=== PATIENT | female | born 1945 | race Caucasian/White ===

== ENCOUNTER 2016-07-30 17:07 | Emergency (ER) | payer SELFPAY ==
[2016-07-30 17:20] VITALS: BP 128/74
--- NOTE | 2016-07-30 23:07 | EDM.PDOC ---
ED HPI GENERAL MEDICAL PROBLEM - General Chief Complaint: Eye Problems Stated Complaint: eye pain Time Seen by Provider: 07/30/16 17:10 Source of Information: Reports: Patient History Limitations: Reports: No Limitations - History of Present Illness INITIAL COMMENTS - FREE TEXT/NARRATIVE: Pt was cleaning up the yard and got some spinous seed in the right eye. Pt claims it happened just before she cam into emergency room. cannot open her eyes and has pain and discomfort in the right eye. Tearing form right eye. No blurry vision. Light has been bothering. No halo around the lights. No headache , nausea or vomiting.No other complaints. Onset: Today Location: Reports: Other (right eye) Quality: Reports: Ache Severity: Moderate Improves with: Reports: None Worsens with: Reports: None Associated Symptoms: Denies: Confusion, Chest Pain, Fever/Chills, Headaches, Nausea/Vomiting Treatments DIRECTOR VIDEO: Reports: Other (see below) Other Treatments DIRECTOR VIDEO: Rinsed out in shower then with contact solution - Related Data Allergies Allergy/AdvReac Type Severity Reaction Status Date / Time sulfa drugs Allergy Rash Uncoded 04/20/16 13:02 Home Meds: Home Meds DULoxetine HCl [Cymbalta] 60 mg PO DAILY 08/11/15 [History] Ibuprofen 800 mg PO DAILY 08/11/15 [History] Rivaroxaban [Xarelto] 15 mg PO DAILY 08/11/15 [History] Rosuvastatin [Crestor] 20 mg PO DAILY 08/11/15 [History] Valsartan [Diovan] 320 mg PO DAILY 08/11/15 [History] Past Medical History HEENT History: Reports: Impaired Vision Other HEENT History: Wears glasses Cardiovascular History: Reports: High Cholesterol, Hypertension Respiratory History: Reports: PE Gastrointestinal History: Reports: Cholelithiasis, Chronic Diarrhea Genitourinary History: Reports: Urinary Incontinence Other Genitourinary History: Has gotten worse over the last two months 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 Immunologic History: Reports: Other (See Below) Other Immunologic History: autoimmune osteoarthritis - Infectious Disease History Infectious Disease History: Reports: Measles - Past Surgical History Female Surgical History: Reports: Hysterectomy, Salpingo-Oophorectomy, Other (See Below) Musculoskeletal Surgical History: Reports: Shoulder Replacement, Other (See Below) Social & Family History - Family History Cardiac: Reports: Afib Respiratory: Reports: PE Neurological: Reports: Alzheimers Disease Endocrine/Metabolic: Reports: Diabetes, Type I - Tobacco Use Smoking Status *Q: Current Some Day Smoker Years of Tobacco use: 50 Packs/Tins Daily: 5 - Caffeine Use Caffeine Use: Reports: Coffee - Recreational Drug Use Recreational Drug Use: No ED ROS GENERAL - Review of Systems Review Of Systems: See Below Constitutional: Denies: Fever, Chills HEENT: Reports: Eye Pain. Denies: Eye Discharge, Hearing Loss, Rhinitis, Sinus Problem Respiratory: Denies: Cough, Sputum Cardiovascular: Denies: Chest Pain, Lightheadedness GI/Abdominal: Denies: Nausea, Vomiting Skin: Denies: Pruritis, Rash Neurological: Denies: Headache ED EXAM GENERAL W FULL EYE - Physical Exam Exam: See Below Exam Limited By: No Limitations General Appearance: Alert, WD/WN, Mild Distress Eye Exam: Right Eye: Corneal Abrasion (there is a 2mm corneal abrasion over the upper outer quadrant of the cornea on fluroscein exam), Bilateral Eye: EOMI Eyelids: Right: Normal Appearance (blepharospasm) Conjunctiva & Sclera: Right: Injected Cornea Exam: Right: Corneal Abrasion (2mm in the outer upper quadrant) Pupils: Normal Accommodation Pupillary Size: Bilateral: 2 mm Pupillary Reaction: Bilateral: Brisk Anterior Chamber: Bilateral: Normal Appearance Ears: Normal External Exam, Normal Canal, Hearing Grossly Normal, Normal TMs Nose: Normal Inspection, Normal Mucosa, No Blood Throat/Mouth: Normal Inspection, Normal Lips, Normal Teeth, Normal Gums, Normal Oropharynx, Normal Voice, No Airway Compromise Head: Atraumatic, Normocephalic Neck: Normal Inspection, Supple, Non-Tender, Full Range of Motion Course - Vital Signs Text/Narrative:: Patient has developed traumatic corneal abrasion of the right eye. Tetracaine resolved the pain and discomfort. There is no corneal edema and vision is normal. I have started patient on cipro eye drops every 2 hrs for next 24 hrs. Avoid rubbing the eye. Avoid direct sunlight, advised to wear dark glasses.Advised to return to emergency room tomorrow for recheck.If pain worsens or if has vision changes , blurry vision, needs to come in sooner. Last Recorded V/S: Last Vital Signs Temp 98.6 F 07/30/16 17:14 Pulse 84 07/30/16 17:14 Resp 20 07/30/16 17:14 BP 128/74 07/30/16 17:14 Pulse Ox 92 L 07/30/16 17:14 Departure - Departure Time of Disposition: 17:30 Disposition: Home, Self-Care 01 Condition: good Clinical Impression: Corneal abrasion Qualifiers: Encounter type: initial encounter Laterality: right Qualified Code(s): S05.01XA - Injury of conjunctiva and corneal abrasion without foreign body, right eye, initial encounter - Discharge Information Instructions: Eye Foreign Body, [id number] Referrals: PCP,Unknown [Primary Care Provider] - Forms: ED Department Discharge - Problem List & Annotations (1) Corneal abrasion SNOMED Code(s): 68218086 Code(s): S05.00XA - INJ CONJUNCTIVA AND CORNEAL ABRASION W/O FB, UNSP EYE, INIT Status: Acute Current Visit: Yes Qualifiers: Encounter type: initial encounter Laterality: right Qualified Code(s): S05.01XA - Injury of conjunctiva and corneal abrasion without foreign body, right eye, initial encounter - Problem List Review Problem List Initiated/Reviewed/Updated: Yes - Assessment/Plan Assessment:: right corneal traumatic abrasion Plan: Patient has developed traumatic corneal abrasion of the right eye. Tetracaine resolved the pain and discomfort. There is no corneal edema and vision is normal. I have started patient on cipro eye drops every 2 hrs for next 24 hrs. Avoid rubbing the eye. Avoid direct sunlight, advised to wear dark glasses.Advised to return to emergency room tomorrow for recheck.If pain worsens or if has vision changes , blurry vision, needs to come in sooner.
== END 2016-07-30 17:30 | disposition home or self-care (01) ==
LOC: LB.ED 17:07
DX: S05.01XA Injury of conjunctiva and corneal abrasion without foreign body, right eye, initial encounter (principal); E78.00 Pure hypercholesterolemia, unspecified; I10 Essential (primary) hypertension; F17.210 Nicotine dependence, cigarettes, uncomplicated; E11.9 Type 2 diabetes mellitus without complications; Z90.710 Acquired absence of both cervix and uterus; Z88.2 Allergy status to sulfonamides; Z79.899 Other long term (current) drug therapy; X58.XXXA Exposure to other specified factors, initial encounter
CPT/HCPCS: 99283

== ENCOUNTER 2016-07-31 19:16 | Emergency (ER) | payer SELFPAY | END 2016-07-31 19:40 | disposition home or self-care (01) | LOC: LB.ED 19:16 | DX: S05.01XA Injury of conjunctiva and corneal abrasion without foreign body, right eye, initial encounter (principal); E78.00 Pure hypercholesterolemia, unspecified; I10 Essential (primary) hypertension; M19.90 Unspecified osteoarthritis, unspecified site; E11.9 Type 2 diabetes mellitus without complications; F17.210 Nicotine dependence, cigarettes, uncomplicated; Z90.710 Acquired absence of both cervix and uterus; Z88.2 Allergy status to sulfonamides; Z79.899 Other long term (current) drug therapy; Y93.H2 Activity, gardening and landscaping; Y92.096 Garden or yard of other non-institutional residence as the place of occurrence of the external cause | CPT/HCPCS: 99282; 99283 ==

== ENCOUNTER 2019-12-04 10:57 | Emergency (ER) | payer MEDICARE ==
[2019-12-04] MEDS: Acetaminophen 325 MG Tab PO ONE (11:56)
[2019-12-04 12:04] VITALS: BP 140/105; PULSE 111
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
[2019-12-04] MEDS: Acetaminophen 325 MG Tab ONE (13:15)
[2019-12-04] MEDS: ALPRAZolam 0.25 MG Tab PO ONE (13:19)
--- NOTE | 2019-12-04 13:27 | CR ---
DATE OF SERVICE: 12/04/2019 CLINICAL DATA: Rib pain AP chest: No priors. The patient has taken a very poor inspiration and is in an apical lordotic position. The heart size is within normal limits. The aorta is calcified and ectatic. There is persistent mild eventration right hemidiaphragm. The lungs appear clear. No pneumothorax. No pleural effusions. The patient is status post left shoulder arthroplasty. No displaced fractures. No evidence of acute intrathoracic disease. [facility]
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
[2019-12-04] MEDS: ALPRAZolam 0.25 MG Tab ONE (13:38)
== END 2019-12-04 13:58 | disposition home or self-care (01) ==
LOC: LB.ED 10:57
DX: S40.021A Contusion of right upper arm, initial encounter (principal); S60.512A Abrasion of left hand, initial encounter; I48.91 Unspecified atrial fibrillation; F17.210 Nicotine dependence, cigarettes, uncomplicated; M19.90 Unspecified osteoarthritis, unspecified site; E10.9 Type 1 diabetes mellitus without complications; Z88.2 Allergy status to sulfonamides; Z79.899 Other long term (current) drug therapy; Y04.0XXA Assault by unarmed brawl or fight, initial encounter
CPT/HCPCS: 70450; 71046; 72125; 93005; 99283; 99285-25; A9270-GY

== ENCOUNTER 2019-12-14 18:58 | Observation (INO) | payer MEDICARE ==
[2019-12-15] MEDS: Cephalexin 500 MG Cap PO SCH ×3 (06:14→18:54)
[2019-12-15] MEDS: metFORMIN 500 MG Tab.ER PO SCH ×3 (09:00→20:40)
[2019-12-15] MEDS: Acetaminophen 500 MG Tab PO SCH (09:00)
[2019-12-15] MEDS ORDERED: Lisinopril 5 MG Tab ONE (09:34)
[2019-12-15] MEDS ORDERED: metFORMIN 500 MG Tab.ER ONE (09:34)
[2019-12-15] MEDS ORDERED: Metoprolol Succinate 100 MG Tab.ER ONE ×2 (09:35→20:32)
[2019-12-15] MEDS: Lisinopril 5 MG Tab PO SCH (09:36)
[2019-12-15] MEDS: Metoprolol Succinate 100 MG Tab.ER PO SCH ×2 (09:36→20:42)
[2019-12-15] MEDS ORDERED: Acetaminophen 500 MG Tab ONE (09:50)
[2019-12-15] MEDS ORDERED: DULoxetine 60 MG Cap ONE (17:16)
[2019-12-15] MEDS ORDERED: ALPRAZolam 0.25 MG Tab ONE (17:18)
[2019-12-15] MEDS: DULoxetine 30 MG Cap PO SCH (17:31)
[2019-12-15] MEDS ORDERED: ALPRAZolam 0.25 MG Tab PO ONE (17:31)
[2019-12-15] MEDS ORDERED: Rivaroxaban 15 MG Tab PO SCH (18:00)
[2019-12-15] MEDS: Spironolactone 25 MG Tab PO SCH (18:40)
[2019-12-15] MEDS: Oxybutynin 5 MG Tab PO SCH ×3 (18:40→20:40)
[2019-12-15] MEDS ORDERED: Cephalexin 500 MG Cap ONE (18:46)
[2019-12-15] MEDS ORDERED: Rivaroxaban 10 MG Tab ONE (18:48)
[2019-12-15] MEDS ORDERED: Metoprolol Succinate 50 MG Tab.ER ONE (20:31)
[2019-12-16] MEDS: DULoxetine 30 MG Cap PO SCH ×2 (00:50→16:57)
[2019-12-16] MEDS: Cephalexin 500 MG Cap PO SCH ×3 (00:51→16:39)
[2019-12-16] MEDS ORDERED: Cephalexin 500 MG Cap ONE ×2 (07:10)
[2019-12-16] MEDS: Acetaminophen 500 MG Tab PO SCH (08:26)
[2019-12-16] MEDS: Lisinopril 5 MG Tab PO SCH (08:27)
[2019-12-16] MEDS: Oxybutynin 5 MG Tab PO SCH (08:27)
[2019-12-16] MEDS: Metoprolol Succinate 100 MG Tab.ER PO SCH (08:28)
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
[2019-12-16] MEDS ORDERED: ALPRAZolam 0.25 MG Tab ONE (16:00)
[2019-12-16] MEDS: DULoxetine 60 MG Cap*PT OWN MED PO SCH ×2 (16:34→21:00)
[2019-12-16] MEDS: METOPROLOL SUCCINATE 100 MG PO SCH ×2 (16:34→21:00)
[2019-12-16] MEDS: OXYBUTYNIN 5 MG PO SCH ×3 (16:34→21:00)
[2019-12-16] MEDS: LISINOPRIL 5 MG PO SCH (16:37)
[2019-12-16] MEDS: metFORMIN 500 MG Tab.ER PO SCH ×2 (16:42→16:43)
[2019-12-16] MEDS: Spironolactone 25 MG Tab PO SCH (16:42)
[2019-12-16] MEDS: ALPRAZolam 0.25 MG Tab PO PRN (16:45)
[2019-12-16] MEDS ORDERED: Rivaroxaban 10 MG Tab PO SCH (18:00)
[2019-12-17] MEDS: metFORMIN 500 MG Tab.ER PO SCH ×2 (04:49→07:42)
[2019-12-17] MEDS: OXYBUTYNIN 5 MG PO SCH (07:35)
[2019-12-17] MEDS: LISINOPRIL 5 MG PO SCH (07:36)
[2019-12-17] MEDS: METOPROLOL SUCCINATE 100 MG PO SCH (07:36)
[2019-12-17] MEDS: Spironolactone 25 MG Tab ONE ×2 (07:37→07:44)
[2019-12-17] MEDS: DULoxetine 60 MG Cap*PT OWN MED PO SCH (07:37)
[2019-12-17] MEDS: Acetaminophen 500 MG Tab PO SCH (07:43)
[2019-12-17] MEDS: Spironolactone 25 MG Tab PO SCH (07:44)
[2019-12-17] MEDS ORDERED: Nystatin Crm 30 GM Tube TOP PRN (09:05)
[2019-12-17] MEDS ORDERED: Nystatin Topical Powder 15 GM Bottle ONE (09:11)
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
[2019-12-17] MEDS: ALPRAZolam 0.25 MG Tab PO PRN (10:59)
[2019-12-17 13:08] VITALS: BP 107/77; PULSE 115
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
[2019-12-18] MEDS ORDERED: buPROPion 150 MG Tab.ER PO SCH (08:00)
[2019-12-18] MEDS ORDERED: Lisinopril 5 MG Tab PO SCH (08:00)
[2019-12-18] MEDS ORDERED: Lisinopril 20 MG Tab PO SCH (08:00)
== END 2019-12-17 12:30 | disposition home or self-care (01) ==
LOC: LB.ED 18:58 → UNDOADMOB 21:00 → LB.MS 21:00
PROVIDERS: ADMIT Surgery; ATTEND Surgery
DX: F32.9 Major depressive disorder, single episode, unspecified (principal); F41.9 Anxiety disorder, unspecified; I77.1 Stricture of artery; N39.0 Urinary tract infection, site not specified; I48.20 Chronic atrial fibrillation, unspecified; Z20.828 Contact with and (suspected) exposure to other viral communicable diseases; E78.00 Pure hypercholesterolemia, unspecified; R19.7 Diarrhea, unspecified; F17.200 Nicotine dependence, unspecified, uncomplicated; E11.9 Type 2 diabetes mellitus without complications; Z88.2 Allergy status to sulfonamides; Z79.899 Other long term (current) drug therapy; Z79.84 Long term (current) use of oral hypoglycemic drugs
CPT/HCPCS: 36415; 80053; 82962; 85025; A9270-GY; G0378; U0002

== ENCOUNTER → 2020-03-18 | Emergency (ER) | payer MEDICARE ==
[~2020-03-18] MED LIST: 50% Dextrose in Water 50 ML Syringe ONE; Albuterol 0.083% 2.5 MG/3 ML Neb Soln ONE; Albuterol/Ipratropium 3.0-0.5 MG/3 ML Neb Soln ONE; Atropine 0.1 MG/ML 10 ML Syringe ONE; EPINEPHrine 1:10,000 1 MG/10 ML Syringe ONE; Insulin Regular, Human 100 Units/ML 3 ML Vial ONE; Ketamine 200 MG/20 ML MDV ONE; Norepinephrine 4 MG/4 ML SDV ONE; Sodium Bicarbonate 8.4% 50 MEQ/50 ML Syringe ONE
== END ==
LOC: LB.ED 17:20
DX: Z53.21 Procedure and treatment not carried out due to patient leaving prior to being seen by health care provider (principal)
CPT/HCPCS: J0610

== ENCOUNTER 2020-03-24 11:05 | Observation (INO) | payer MEDICARE ==
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
--- NOTE | 2020-03-24 13:14 | CR ---
DATE OF SERVICE: 03/24/20 CLINICAL DATA: chest pain AP CHEST: Comparison is made to a prior exam dated 12/04/19. The heart size is normal. The aorta is calcified and ectatic. The lungs are clear. No pneumothorax. No pleural effusions. The patient is status post left shoulder arthroplasty. No evidence of acute intrathoracic disease. [id number] [facility]
[2020-03-24] MEDS ORDERED: Acetaminophen 325 MG Tab PO PRN (13:28)
[2020-03-24] MEDS ORDERED: ALPRAZOLAM 0.5 MG PO PRN (13:28)
[2020-03-24] MEDS ORDERED: OXYBUTYNIN CHLORIDE 10 MG PO SCH (14:00)
[2020-03-24] MEDS ORDERED: ALPRAZolam 0.25 MG Tab ONE (14:56)
[2020-03-24] MEDS ORDERED: Oxybutynin 5 MG Tab ONE (14:57)
[2020-03-24] MEDS: Sodium Chloride 0.9% 1,000 ML IV SCH (15:00)
[2020-03-24] MEDS ORDERED: ALPRAZolam 0.25 MG Tab PO PRN (15:44)
[2020-03-24] MEDS ORDERED: metFORMIN 500 MG Tab.ER PO SCH (18:00)
--- NOTE | 2020-03-24 18:35 | PCM.PN ---
- General Info Date of Service: 03/24/20 Subjective Update: Patient seen at bedside. Denies any current chest pains at this time and notes some bouts of anxiety for her grandson and expectant twins. There have been current family concerns the past few weeks/months. Currently her son and [id number] with her grandson Hemant have moved out. She is living alone at home and there have been community members helping her. She notes she does not have a car as it is with Mell([id number]) who has the keys. She does note she has fallen a few times and has had difficulty getting up. She has felt weak at times as well. Her memory appears intact but there are concerns of memory loss by her [id number]. The ambulance has been called a few times due to her falls. Patient acknowledges falls as she states she feels weak sometimes. Patient notes her debit card is with her [id number] and they have withdrawn her social security check and she has no money at this time. Patient is in fair spirits and coherent and appears well. She notes a meeting tomorrow at 930am with DONA ANA with social service assistant and home health to discuss plan of care for her and atrial mass. Appetite is good. Day month year is incorrect today. Place and person intact. Functional Status: Reports: Tolerating Diet - Review of Systems General: Reports: Weakness HEENT: Reports: No Symptoms Pulmonary: Reports: No Symptoms Cardiovascular: Reports: No Symptoms Gastrointestinal: Reports: No Symptoms Neurological: Reports: Confusion, Weakness - Patient Data Vitals - Most Recent: Last Vital Signs Temp 36.3 C 03/24/20 17:43 Pulse 94 03/24/20 17:43 Resp 12 03/24/20 17:43 BP 104/70 03/24/20 17:43 Pulse Ox 96 03/24/20 17:43 Weight - Most Recent: 74.571 kg I&O - Last 24 Hours: Intake & Output 03/24/20 03/24/20 03/24/20 06:59 14:59 22:59 Intake Total 225 Balance 225 Lab Results Last 24 Hours: Laboratory Results - last 24 hr 03/24/20 03/24/20 03/24/20 Range/Units 11:12 11:12 11:12 WBC 6.6 D (4.0-11.0) K/uL RBC 4.48 (3.80-5.80) M/uL Hgb 14.0 (11.5-16.5) g/dL Hct 39.8 (37.0-47.0) % MCV 89 (76-96) fL MCH 31.3 (27.0-32.0) pg MCHC 35.2 H (31.0-35.0) g/dL RDW 13.8 (11.0-16.0) % Plt Count 221 D (150-500) K/uL MPV 12.5 H (6.0-10.0) fL Neut % (Auto) 66.1 (45.0-70.0) % Lymph % (Auto) 24.0 (20.0-40.0) % [place] % (Auto) 7.3 (3.0-10.0) % Eos % (Auto) 2.1 (1.0-5.0) % Baso % (Auto) 0.5 (0.0-0.5) % Neut # (Auto) 4.38 (2.00-7.50) K/uL Lymph # (Auto) 1.59 (1.50-4.00) K/uL [place] # (Auto) 0.48 (0.20-0.80) K/uL Eos # (Auto) 0.14 (0.04-0.40) K/uL Baso # (Auto) 0.03 (0.02-0.10) K/uL Sodium 131 L (136-145) mmol/L Potassium 5.6 H (3.5-5.1) mmol/L Chloride 99 (98-107) mmol/L Carbon Dioxide 19.9 L D (21.0-32.0) mmol/L Anion Gap 17.7 H (5.0-15.0) mmol/L BUN 53 H* D (8-26) mg/dL Creatinine 1.99 H (0.55-1.02) mg/dL Est Cr Clr Drug Dosing 21.42 mL/min Estimated GFR (MDRD) 24 L (>60) MLS/MIN BUN/Creatinine Ratio 26.6 H (6-25) Glucose 161 H (74-100) mg/dL Calcium 10.5 H (8.5-10.1) mg/dL Total Bilirubin 1.0 D (0.0-1.0) mg/dL AST 30 (15-37) U/L ALT 24 (12-78) U/L Alkaline Phosphatase 69 (46-116) U/L Troponin I < 0.017 (0.000-0.060) ng/mL Total Protein 7.4 (6.4-8.2) g/dL Albumin 3.8 (3.4-5.0) g/dL Globulin 3.6 (2.2-4.2) g/dL Albumin/Globulin Ratio 1.1 (0.8-2.0) Urine Color Yellow Urine Appearance Clear (CLEAR) Urine pH 5.5 (5.0-8.0) Ur Specific [place] 1.020 (1.003-1.030) Urine Protein Negative (NEGATIVE) mg/dL Urine Glucose (UA) Negative (NEGATIVE) mg/dL Urine Ketones Negative (NEGATIVE) mg/dL Urine Occult Blood Negative (NEGATIVE) Urine Nitrite Negative (NEGATIVE) Urine Bilirubin Negative (NEGATIVE) Urine Urobilinogen 0.2 (0.2-1.0) E.U./dL Ur Leukocyte Esterase Negative (NEGATIVE) SARS-CoV-2 RNA (LAUREN) (NEGATIVE) 03/24/20 03/24/20 Range/Units 14:00 17:40 WBC (4.0-11.0) K/uL RBC (3.80-5.80) M/uL Hgb (11.5-16.5) g/dL Hct (37.0-47.0) % MCV (76-96) fL MCH (27.0-32.0) pg MCHC (31.0-35.0) g/dL RDW (11.0-16.0) % Plt Count (150-500) K/uL MPV (6.0-10.0) fL Neut % (Auto) (45.0-70.0) % Lymph % (Auto) (20.0-40.0) % [place] % (Auto) (3.0-10.0) % Eos % (Auto) (1.0-5.0) % Baso % (Auto) (0.0-0.5) % Neut # (Auto) (2.00-7.50) K/uL Lymph # (Auto) (1.50-4.00) K/uL [place] # (Auto) (0.20-0.80) K/uL Eos # (Auto) (0.04-0.40) K/uL Baso # (Auto) (0.02-0.10) K/uL Sodium (136-145) mmol/L Potassium (3.5-5.1) mmol/L Chloride (98-107) mmol/L Carbon Dioxide (21.0-32.0) mmol/L Anion Gap (5.0-15.0) mmol/L BUN (8-26) mg/dL Creatinine (0.55-1.02) mg/dL Est Cr Clr Drug Dosing mL/min Estimated GFR (MDRD) (>60) MLS/MIN BUN/Creatinine Ratio (6-25) Glucose (74-100) mg/dL Calcium (8.5-10.1) mg/dL Total Bilirubin (0.0-1.0) mg/dL AST (15-37) U/L ALT (12-78) U/L Alkaline Phosphatase (46-116) U/L Troponin I < 0.017 (0.000-0.060) ng/mL Total Protein (6.4-8.2) g/dL Albumin (3.4-5.0) g/dL Globulin (2.2-4.2) g/dL Albumin/Globulin Ratio (0.8-2.0) Urine Color Urine Appearance (CLEAR) Urine pH (5.0-8.0) Ur Specific [place] (1.003-1.030) Urine Protein (NEGATIVE) mg/dL Urine Glucose (UA) (NEGATIVE) mg/dL Urine Ketones (NEGATIVE) mg/dL Urine Occult Blood (NEGATIVE) Urine Nitrite (NEGATIVE) Urine Bilirubin (NEGATIVE) Urine Urobilinogen (0.2-1.0) E.U./dL Ur Leukocyte Esterase (NEGATIVE) SARS-CoV-2 RNA (LAUREN) Negative (NEGATIVE) Med Orders - Current: Current Medications Acetaminophen (Tylenol) 650 mg PO Q4H PRN PRN Reason: Pain (Mild 1-3)/fever Acetaminophen (Tylenol Extra Strength) 1,000 mg PO DAILY [facility] Alprazolam (Xanax) 0.5 mg PO TID PRN PRN Reason: ANXIETY Bupropion HCl (Wellbutrin Xl) 150 mg PO DAILY [facility] Duloxetine HCl (Cymbalta) 120 mg PO BID [facility] Sodium Chloride (Normal Saline) 1,000 mls @ 75 mls/hr IV ASDIRECTED [facility] Last Admin: 03/24/20 15:00 Dose: 75 mls/hr Documented by: Lisinopril (Prinivil) 10 mg PO DAILY [facility] Metformin HCl (Glucophage Xr) 500 mg PO WITHDINNER [facility] Last Admin: 03/24/20 18:19 Dose: 500 mg Documented by: Metformin HCl (Glucophage Xr) 1,000 mg PO DAILY@0800 [facility] Metoprolol Succinate (Toprol Xl) 150 mg PO BID [facility] Oxybutynin Chloride (Oxybutynin) 10 mg PO TID [facility] Rivaroxaban (Xarelto) 20 mg PO DAILY [facility] Spironolactone (Aldactone) 25 mg PO DAILY [facility] Discontinued Medications Alprazolam (Xanax) Confirm Administered Dose 0.5 mg .ROUTE .STK-MED ONE Stop: 03/24/20 14:57 Last Admin: 03/24/20 15:44 Dose: Not Given Documented by: Non-Formulary Medication (Alprazolam [Xanax]) 0.5 mg PO TID PRN PRN Reason: Anxiety Last Admin: 03/24/20 15:05 Dose: 0.5 mg Documented by: Non-Formulary Medication (Oxybutynin Chloride [Oxybutynin Chloride Er]) 10 mg PO TID [facility] Last Admin: 03/24/20 15:05 Dose: 10 mg Documented by: Oxybutynin Chloride (Oxybutynin) Confirm Administered Dose 10 mg .ROUTE .STK-MED ONE Stop: 03/24/20 14:58 Last Admin: 03/24/20 18:01 Dose: Not Given Documented by: - Exam General: Alert, Cooperative HEENT: Pupils Equal, Pupils Reactive, EOMI Neck: Supple Lungs: Clear to Auscultation, Normal Respiratory Effort Cardiovascular: Murmurs GI/Abdominal Exam: Normal Bowel Sounds, Soft, Non-Tender Psy/Mental Status: Alert, Normal Affect, Normal Mood Sepsis Event Note - Evaluation Sepsis Screening Result: No Definite Risk - Focused Exam Vital Signs: Vital Signs Temp Pulse Resp BP Pulse Ox 03/24/20 17:43 36.3 C 94 12 104/70 96 03/24/20 14:00 37.0 C 98 12 109/70 96 03/24/20 13:25 82 12 95/69 97 03/24/20 13:02 100 12 101/79 96 03/24/20 12:31 97 12 92/60 96 03/24/20 12:01 94 12 96/72 96 03/24/20 11:35 89 12 89/56 L 97 03/24/20 11:21 97 12 97/78 91 L 03/24/20 11:13 36.7 C 92 16 105/77 94 L 03/24/20 11:05 36.8 C 106 H 16 105/77 93 L - Problem List & Annotations (1) Delirium SNOMED Code(s): 1972759 Code(s): R41.0 - DISORIENTATION, UNSPECIFIED Status: Acute Current Visit: Yes (2) Chest pain SNOMED Code(s): 19369090 Code(s): R07.9 - CHEST PAIN, UNSPECIFIED Status: Acute Current Visit: Yes (3) Hyperkalemia SNOMED Code(s): 40935649 Code(s): E87.5 - HYPERKALEMIA Status: Acute Current Visit: Yes (4) Hyponatremia SNOMED Code(s): 35915793 Code(s): E87.1 - HYPO-OSMOLALITY AND HYPONATREMIA Status: Acute Current Visit: Yes (5) Weakness SNOMED Code(s): 54774677 Code(s): R53.1 - WEAKNESS Status: Acute Current Visit: Yes (6) Renal insufficiency SNOMED Code(s): 837199410, 615203710 Code(s): N28.9 - DISORDER OF KIDNEY AND URETER, UNSPECIFIED Status: Acute Priority: High Current Visit: No - Problem List Review Problem List Initiated/Reviewed/Updated: Yes - Plan Plan:: If patient continues with acute renal insufficiency and delirium to be placed in admit vs observation. We will repeat MMSE tomorrow and further testing as needed or referral/management. 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 Plan of care to continue with [facility]-[place]ett, Community Youth Secretary, Home Health, Family and PCP(myself). Emmett to continue f/u serial troponins to r/o ACS, hydration for renal insuffi ciency, hyponatremia, hyperkalemia. Will continue to discuss plan with Sister Salena, f/u son Will who is coming tomorrow and clinical services specialist.
[2020-03-24] MEDS ORDERED: diphenhydrAMINE 25 MG Cap PO PRN (18:43)
[2020-03-24] MEDS: DULoxetine 60 MG Cap PO SCH (20:42)
[2020-03-24] MEDS: Oxybutynin 5 MG Tab PO SCH (20:43)
[2020-03-24] MEDS: Metoprolol Succinate 50 MG Tab.ER PO SCH (20:43)
[2020-03-25] MEDS: Sodium Chloride 0.9% 1,000 ML IV SCH (03:19)
[2020-03-25] MEDS ORDERED: Acetaminophen 500 MG Tab PO SCH (08:00)
[2020-03-25] MEDS ORDERED: buPROPion 150 MG Tab.ER PO SCH (08:00)
[2020-03-25] MEDS ORDERED: Lisinopril 5 MG Tab PO SCH (08:00)
[2020-03-25] MEDS ORDERED: metFORMIN 500 MG Tab.ER PO SCH (08:00)
[2020-03-25] MEDS ORDERED: Spironolactone 25 MG Tab PO SCH (08:00)
[2020-03-25] MEDS: Oxybutynin 5 MG Tab PO SCH (08:28)
[2020-03-25] MEDS: Rivaroxaban 10 MG Tab ONE ×2 (08:28→08:31)
[2020-03-25] MEDS: DULoxetine 60 MG Cap PO SCH (08:29)
[2020-03-25] MEDS: Metoprolol Succinate 50 MG Tab.ER PO SCH (08:30)
[2020-03-25 14:22] VITALS: BP 94/70; PULSE 71
--- NOTE | 2020-03-25 17:14 | PCM.DCSUM1 ---
Discharge Summary - Discharge Data Discharge Date: 03/25/20 Discharge Disposition: Home, Self-Care 01 Condition: Good - Referral to Home Health Primary Care Physician: PCP None - Discharge Diagnosis/Problem(s) (1) Delirium SNOMED Code(s): 6432177 ICD Code: R41.0 - DISORIENTATION, UNSPECIFIED Status: Acute (2) Chest pain SNOMED Code(s): 77286584 ICD Code: R07.9 - CHEST PAIN, UNSPECIFIED Status: Acute (3) Hyperkalemia SNOMED Code(s): 71629402 ICD Code: E87.5 - HYPERKALEMIA Status: Acute (4) Hyponatremia SNOMED Code(s): 69805582 ICD Code: E87.1 - HYPO-OSMOLALITY AND HYPONATREMIA Status: Acute (5) Weakness SNOMED Code(s): 45017130 ICD Code: R53.1 - WEAKNESS Status: Acute (6) Renal insufficiency SNOMED Code(s): 196446971, 553273516 ICD Code: N28.9 - DISORDER OF KIDNEY AND URETER, UNSPECIFIED Status: Acute Priority: High - Discharge Plan *PRESCRIPTION DRUG MONITORING PROGRAM REVIEWED*: Not Applicable *COPY OF PRESCRIPTION DRUG MONITORING REPORT IN PATIENT HERNAN: Not Applicable Home Medications: Home Meds Acetaminophen [Tylenol Extra Strength] 1,000 mg PO DAILY tablet 12/17/19 [Rx] Spironolactone [Aldactone] 25 mg PO DAILY tablet 12/17/19 [Rx] buPROPion [buPROPion XL] 150 mg PO DAILY #60 tab.er 12/17/19 [Rx] metFORMIN [Glucophage XR] 1,000 mg PO DAILY@0800 tab.er 12/17/19 [Rx] metFORMIN [Glucophage XR] 500 mg PO WITHDINNER tab.er 12/17/19 [Rx] ALPRAZolam [Xanax] 0.5 mg PO TID PRN 03/24/20 [History] DULoxetine [Cymbalta] 120 mg PO BID 03/24/20 [History] Metoprolol Succinate 150 mg PO BID 03/24/20 [History] Oxybutynin 10 mg PO TID 03/24/20 [History] Rivaroxaban [Xarelto] 20 mg PO DAILY 03/24/20 [History] lisinopriL [Lisinopril] 10 mg PO DAILY 03/24/20 [History] Forms: ED Department Discharge Referrals: PCP,None [Primary Care Provider] - - Patient Data Vitals - Most Recent: Last Vital Signs Temp 36.6 C 03/25/20 14:00 Pulse 71 03/25/20 14:00 Resp 16 03/25/20 14:00 BP 94/70 03/25/20 14:00 Pulse Ox 98 03/25/20 14:00 Weight - Most Recent: 74.571 kg I&O - Last 24 hours: Intake & Output 03/25/20 03/25/20 03/25/20 06:59 14:59 22:59 Intake Total 1128 Balance 1128 Lab Results - Last 24 hrs: Laboratory Results - last 24 hr 03/24/20 03/25/20 Range/Units 17:40 08:00 Sodium 135 L (136-145) mmol/L Potassium 4.9 (3.5-5.1) mmol/L Chloride 104 (98-107) mmol/L Carbon Dioxide 21.5 (21.0-32.0) mmol/L Anion Gap 14.4 (5.0-15.0) mmol/L BUN 38 H D (8-26) mg/dL Creatinine 1.52 H D (0.55-1.02) mg/dL Est Cr Clr Drug Dosing 28.04 mL/min Estimated GFR (MDRD) 33 L (>60) MLS/MIN BUN/Creatinine Ratio 25.0 (6-25) Glucose 157 H (74-100) mg/dL Calcium 10.0 (8.5-10.1) mg/dL Total Bilirubin 0.7 (0.0-1.0) mg/dL AST 18 (15-37) U/L ALT 20 (12-78) U/L Alkaline Phosphatase 63 (46-116) U/L Troponin I < 0.017 < 0.017 (0.000-0.060) ng/mL Total Protein 6.8 (6.4-8.2) g/dL Albumin 3.5 (3.4-5.0) g/dL Globulin 3.3 (2.2-4.2) g/dL Albumin/Globulin Ratio 1.1 (0.8-2.0) [facility] Results - Last 24 hrs: Microbiology 03/24/20 14:30 MRSA Surveillance Culture - Final Nares, Left NO MRSA ISOLATED Med Orders - Current: Current Medications Discontinued Medications Acetaminophen (Tylenol) 650 mg PO Q4H PRN PRN Reason: Pain (Mild 1-3)/fever Acetaminophen (Tylenol Extra Strength) 1,000 mg PO DAILY [facility] Last Admin: 03/25/20 08:30 Dose: 1,000 mg Documented by: Alprazolam (Xanax) Confirm Administered Dose 0.5 mg .ROUTE .STK-MED ONE Stop: 03/24/20 14:57 Last Admin: 03/24/20 15:44 Dose: Not Given Documented by: Alprazolam (Xanax) 0.5 mg PO TID PRN PRN Reason: ANXIETY Last Admin: 03/25/20 13:51 Dose: 0.5 mg Documented by: Bupropion HCl (Wellbutrin Xl) 150 mg PO DAILY [facility] Last Admin: 03/25/20 08:29 Dose: 150 mg Documented by: Diphenhydramine HCl (Benadryl) 25 mg PO BEDTIME PRN PRN Reason: Insomnia Last Admin: 03/24/20 20:43 Dose: 25 mg Documented by: Duloxetine HCl (Cymbalta) 120 mg PO BID [facility] Last Admin: 03/25/20 08:29 Dose: 120 mg Documented by: Sodium Chloride (Normal Saline) 1,000 mls @ 75 mls/hr IV ASDIRECTED [facility] Last Admin: 03/25/20 03:19 Dose: 75 mls/hr Documented by: Lisinopril (Prinivil) 10 mg PO DAILY [facility] Last Admin: 03/25/20 08:28 Dose: 10 mg Documented by: Metformin HCl (Glucophage Xr) 500 mg PO WITHDINNER [facility] Last Admin: 03/24/20 18:19 Dose: 500 mg Documented by: Metformin HCl (Glucophage Xr) 1,000 mg PO DAILY@0800 [facility] Last Admin: 03/25/20 08:29 Dose: 1,000 mg Documented by: Metoprolol Succinate (Toprol Xl) 150 mg PO BID [facility] Last Admin: 03/25/20 08:30 Dose: 150 mg Documented by: Non-Formulary Medication (Alprazolam [Xanax]) 0.5 mg PO TID PRN PRN Reason: Anxiety Last Admin: 03/24/20 15:05 Dose: 0.5 mg Documented by: Non-Formulary Medication (Oxybutynin Chloride [Oxybutynin Chloride Er]) 10 mg PO TID [facility] Last Admin: 03/24/20 15:05 Dose: 10 mg Documented by: Oxybutynin Chloride (Oxybutynin) Confirm Administered Dose [facility] Stop: 03/24/20 14:58 Last Admin: 03/24/20 18:01 Dose: Not Given Documented by: Oxybutynin Chloride (Oxybutynin) 10 mg PO TID [facility] Last Admin: 03/25/20 08:28 Dose: 10 mg Documented by: Rivaroxaban (Xarelto) 20 mg PO DAILY [facility] Last Admin: 03/25/20 08:31 Dose: 20 mg Documented by: Rivaroxaban (Xarelto) Confirm Administered Dose 10 mg .ROUTE .[employer] ONE Stop: 03/25/20 08:26 Last Admin: 03/25/20 08:31 Dose: Not Given Documented by: Spironolactone (Aldactone) 25 mg PO DAILY [facility] Last Admin: 03/25/20 08:30 Dose: 25 mg Documented by:
== END 2020-03-25 16:29 | disposition home or self-care (01) ==
LOC: LB.ED 11:05 → LB.MS 13:14
PROVIDERS: ADMIT Registered Nurse; ATTEND Registered Nurse
DX: R07.9 Chest pain, unspecified (principal); F41.9 Anxiety disorder, unspecified; E87.1 Hypo-osmolality and hyponatremia; E87.5 Hyperkalemia; R53.1 Weakness; I48.91 Unspecified atrial fibrillation; E78.00 Pure hypercholesterolemia, unspecified; E11.9 Type 2 diabetes mellitus without complications; R41.0 Disorientation, unspecified; E87.6 Hypokalemia; N28.9 Disorder of kidney and ureter, unspecified; Z20.822 Contact with and (suspected) exposure to COVID-19; Z88.2 Allergy status to sulfonamides; Z79.899 Other long term (current) drug therapy; Z79.84 Long term (current) use of oral hypoglycemic drugs; Z98.890 Other specified postprocedural states
CPT/HCPCS: 36415; 71045; 80053; 81003; 84484; 85025; 93005; 99285-25; A0425; A0429; A9270-GY; G0378; J7030; U0002

== ENCOUNTER 2020-04-04 06:54 | Emergency (ER) | payer MEDICARE ==
[2020-04-04] MEDS ORDERED: Albuterol 0.021% 0.63 MG/3 ML Neb Soln ONE (08:50)
[2020-04-04] MEDS ORDERED: fentaNYL 100 MCG/2 ML SDV ONE (09:56)
[2020-04-04 10:35] VITALS: PULSE 59
[2020-04-04 11:02] VITALS: BP 95/59
--- NOTE | 2020-04-04 14:42 | EDM.PDOC ---
ED HPI GENERAL MEDICAL PROBLEM - General Chief Complaint: General Stated Complaint: found on the floor in her home, cold and AMS. Time Seen by Provider: 04/04/20 07:00 Source of Information: Reports: EMS, Family History Limitations: Reports: Altered Mental Status, Other (Patient prestented with Bradycardia and hypotensive. ) - History of Present Illness Onset: Today Onset Date: 04/04/20 Onset Time: 03:30 Duration: Hour(s):, Getting Worse Severity: Severe Improves with: Reports: Other (, medications given in ER) Associated Symptoms: Reports: Confusion, Shortness of Breath Treatments MEDICARE SPECIALIST: Reports: EKG, Intubation, IV/IO, Other Medication(s), See EMS Report (Patient's condition worsened, [employer] flight called for transfer.) - Related Data Allergies Allergy/AdvReac Type Severity Reaction Status Date / Time sulfa drugs Allergy Rash Uncoded 04/04/20 06:58 Home Meds: Home Meds Acetaminophen [Tylenol Extra Strength] 1,000 mg PO DAILY tablet 12/17/19 [Rx] Spironolactone [Aldactone] 25 mg PO DAILY tablet 12/17/19 [Rx] buPROPion [buPROPion XL] 150 mg PO DAILY #60 tab.er 12/17/19 [Rx] metFORMIN [Glucophage XR] 1,000 mg PO DAILY@0800 tab.er 12/17/19 [Rx] metFORMIN [Glucophage XR] 500 mg PO WITHDINNER tab.er 12/17/19 [Rx] ALPRAZolam [Xanax] 0.5 mg PO TID PRN 03/24/20 [History] DULoxetine [Cymbalta] 120 mg PO BID 03/24/20 [History] Metoprolol Succinate 150 mg PO BID 03/24/20 [History] Oxybutynin 10 mg PO TID 03/24/20 [History] Rivaroxaban [Xarelto] 20 mg PO DAILY 03/24/20 [History] lisinopriL [Lisinopril] 10 mg PO DAILY 03/24/20 [History] Past Medical History HEENT History: Reports: Impaired Vision Other HEENT History: Wears glasses. Has hearing aides [facility] Cardiovascular History: Reports: Afib, High Cholesterol, Other (See Below) (hyperkalemiab bradycardia, hypotension) Other Cardiovascular History: angioma left atrium. Arotic stenosis Respiratory History: Reports: PE Gastrointestinal History: Reports: Cholelithiasis, Chronic Diarrhea Genitourinary History: Reports: Urinary Incontinence Other Genitourinary History: Has gotten worse over the last two months EDUCATION SITE MANAGER History: Reports: Other EDUCATION SITE MANAGER History: hysterectomy, S & P Musculoskeletal History: Reports: Osteoarthritis Psychiatric History: Reports: Anxiety, Dementia Endocrine/Metabolic History: Reports: Diabetes, Type II Hematologic History: Reports: Other (See Below) Other Hematologic History: Has had several workups for blood disorders due to hx 9 PE but unable to find any. 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 GI Surgical History: Reports: Cholecystectomy Female Surgical History: Reports: Hysterectomy, Salpingo-Oophorectomy, Other (See Below) Other Female Surgeries/Procedures: TAHBSO Musculoskeletal Surgical History: Reports: Shoulder Replacement, Other (See Below) Other Musculoskeletal Surgeries/Procedures:: acromioplasty (Rt and lt) Social & Family History - Family History Family Medical History: Unobtainable Cardiac: Reports: Afib Respiratory: Reports: PE Neurological: Reports: Alzheimers Disease Endocrine/Metabolic: Reports: Diabetes, Type I - Caffeine Use Caffeine Use: Reports: Coffee ED ROS GENERAL - Review of Systems Review Of Systems: See Below Constitutional: Reports: Weakness, Other (confusion) HEENT: Reports: Other (pupils dilated non reactive to light ) Respiratory: Reports: Shortness of Breath, Other (hypoxic) Cardiovascular: Reports: Blood Pressure Problem (hypotension, bradycardia ) Endocrine: Reports: No Symptoms GI/Abdominal: Reports: No Symptoms : Reports: No Symptoms Musculoskeletal: Reports: No Symptoms Skin: Reports: Mottled Neurological: Reports: Confusion, Weakness Psychiatric: Reports: No Symptoms Hematologic/Lymphatic: Reports: No Symptoms Immunologic: Reports: No Symptoms ED EXAM, GENERAL - Physical Exam Exam: See Below Exam Limited By: Altered Mental Status General Appearance: Lethargic, Severe Distress Eye Exam: Bilateral Eye: Abnormal Pupil (dilated, non reactive to light) Nose: Normal Inspection Throat/Mouth: Normal Inspection Head: Atraumatic, Normocephalic Neck: Normal Inspection Respiratory/Chest: Other (respiratory distress ) Peripheral Pulses: 1+: Carotid (L), Carotid (R), Brachial (L), Brachial (R), Radial (L), Radial (R) GI/Abdominal: Soft, No Distention (Female) Exam: Deferred Rectal (Female) Exam: Deferred Extremities: Mottled Neurological: Disoriented, Slow to Respond Skin Exam: Cool, Cyanosis, Mottled #1 Interpretation EKG Date: 04/04/20 (Bradycardia ) Course - Vital Signs Last Recorded V/S: Last Vital Signs Temp 35.3 C L 04/04/20 07:05 Pulse 59 L 04/04/20 10:34 Resp 18 04/04/20 10:59 BP 95/59 L 04/04/20 10:59 Pulse Ox 88 L 04/04/20 10:59 - Orders/Labs/Meds Orders: Active Orders 24 hr Category Date Time Status Chest 1V Frontal [CR] Stat Exams 04/04/20 11:41 Taken Labs: Laboratory Tests 04/04/20 04/04/20 04/04/20 Range/Units 07:45 07:45 07:45 WBC 9.2 D (4.0-11.0) K/uL RBC 4.28 (3.80-5.80) M/uL Hgb 13.3 (11.5-16.5) g/dL Hct 40.1 (37.0-47.0) % MCV 94 (76-96) fL MCH 31.1 (27.0-32.0) pg MCHC 33.2 (31.0-35.0) g/dL RDW 15.0 (11.0-16.0) % Plt Count 105 L D (150-500) K/uL MPV 11.9 H (6.0-10.0) fL PT (9.0-11.5) sec INR (1.0-3.5) ABG pH (7.35-7.45) ABG pCO2 (35-45) mmHg ABG pO2 (80-105) mmHg ABG HCO3 (22-26) mmol/L ABG O2 Saturation (95-98) % ABG Base Excess (-2-2) Fred Test O2 Delivery Device Sodium 133 L (136-145) mmol/L Potassium 7.7 H* D (3.5-5.1) mmol/L Chloride 103 (98-107) mmol/L Carbon Dioxide 13.0 L* D (21.0-32.0) mmol/L Anion Gap 24.7 H (5.0-15.0) mmol/L BUN 55 H* D (8-26) mg/dL Creatinine 2.59 H D (0.55-1.02) mg/dL Est Cr Clr Drug Dosing TNP Estimated GFR (MDRD) 18 L (>60) MLS/MIN BUN/Creatinine Ratio 21.2 (6-25) Glucose 244 H D (74-100) mg/dL Calcium 9.9 (8.5-10.1) mg/dL Total Bilirubin 1.1 H D (0.0-1.0) mg/dL AST 478 H (15-37) U/L ALT 403 H (12-78) U/L Alkaline Phosphatase 76 (46-116) U/L Creatine Kinase Index Cancelled CK-MB (CK-2) Cancelled Troponin I < 0.017 (0.000-0.060) ng/mL B-Natriuretic Peptide (0-125) pg/mL Total Protein 6.3 L (6.4-8.2) g/dL Albumin 3.4 (3.4-5.0) g/dL Globulin 2.9 (2.2-4.2) g/dL Albumin/Globulin Ratio 1.2 (0.8-2.0) Urine Color Urine Appearance (CLEAR) Urine pH (5.0-8.0) Ur Specific [place] (1.003-1.030) Urine Protein (NEGATIVE) mg/dL Urine Glucose (UA) (NEGATIVE) mg/dL Urine Ketones (NEGATIVE) mg/dL Urine Occult Blood (NEGATIVE) Urine Nitrite (NEGATIVE) Urine Bilirubin (NEGATIVE) Urine Urobilinogen (0.2-1.0) E.U./dL Ur Leukocyte Esterase (NEGATIVE) SARS CoV-2 RNA Rapid LAUREN 04/04/20 04/04/20 04/04/20 Range/Units 07:45 07:45 08:10 WBC (4.0-11.0) K/uL RBC (3.80-5.80) M/uL Hgb (11.5-16.5) g/dL Hct (37.0-47.0) % MCV (76-96) fL MCH (27.0-32.0) pg MCHC (31.0-35.0) g/dL RDW (11.0-16.0) % Plt Count (150-500) K/uL MPV (6.0-10.0) fL PT 13.8 H D (9.0-11.5) sec INR 1.4 D (1.0-3.5) ABG pH 7.04 L* (7.35-7.45) ABG pCO2 36.2 (35-45) mmHg ABG pO2 281.2 H* (80-105) mmHg ABG HCO3 9.9 L (22-26) mmol/L ABG O2 Saturation 99.7 H (95-98) % ABG Base Excess -20.7 L (-2-2) Fred Test certified juvenile probation officer O2 Delivery Device Non rebr mask Sodium (136-145) mmol/L Potassium (3.5-5.1) mmol/L Chloride (98-107) mmol/L Carbon Dioxide (21.0-32.0) mmol/L Anion Gap (5.0-15.0) mmol/L BUN (8-26) mg/dL Creatinine (0.55-1.02) mg/dL Est Cr Clr Drug Dosing Estimated GFR (MDRD) (>60) MLS/MIN BUN/Creatinine Ratio (6-25) Glucose (74-100) mg/dL Calcium (8.5-10.1) mg/dL Total Bilirubin (0.0-1.0) mg/dL AST (15-37) U/L ALT (12-78) U/L Alkaline Phosphatase (46-116) U/L Creatine Kinase Index CK-MB (CK-2) Troponin I (0.000-0.060) ng/mL B-Natriuretic Peptide 2744 H D (0-125) pg/mL Total Protein (6.4-8.2) g/dL Albumin (3.4-5.0) g/dL Globulin (2.2-4.2) g/dL Albumin/Globulin Ratio (0.8-2.0) Urine Color Urine Appearance (CLEAR) Urine pH (5.0-8.0) Ur Specific [place] (1.003-1.030) Urine Protein (NEGATIVE) mg/dL Urine Glucose (UA) (NEGATIVE) mg/dL Urine Ketones (NEGATIVE) mg/dL Urine Occult Blood (NEGATIVE) Urine Nitrite (NEGATIVE) Urine Bilirubin (NEGATIVE) Urine Urobilinogen (0.2-1.0) E.U./dL Ur Leukocyte Esterase (NEGATIVE) SARS CoV-2 RNA Rapid LAUREN 04/04/20 04/04/20 04/04/20 Range/Units 08:20 09:40 10:00 WBC (4.0-11.0) K/uL RBC (3.80-5.80) M/uL Hgb (11.5-16.5) g/dL Hct (37.0-47.0) % MCV (76-96) fL MCH (27.0-32.0) pg MCHC (31.0-35.0) g/dL RDW (11.0-16.0) % Plt Count (150-500) K/uL MPV (6.0-10.0) fL PT (9.0-11.5) sec INR (1.0-3.5) ABG pH (7.35-7.45) ABG pCO2 (35-45) mmHg ABG pO2 (80-105) mmHg ABG HCO3 (22-26) mmol/L ABG O2 Saturation (95-98) % ABG Base Excess (-2-2) Fred Test O2 Delivery Device Sodium 137 (136-145) mmol/L Potassium 6.3 H* (3.5-5.1) mmol/L Chloride 107 (98-107) mmol/L Carbon Dioxide 15.7 L D (21.0-32.0) mmol/L Anion Gap 20.6 H (5.0-15.0) mmol/L BUN 54 H* (8-26) mg/dL Creatinine 2.22 H (0.55-1.02) mg/dL Est Cr Clr Drug Dosing TNP Estimated GFR (MDRD) 22 L (>60) MLS/MIN BUN/Creatinine Ratio 24.3 (6-25) Glucose 224 H (74-100) mg/dL Calcium 9.5 (8.5-10.1) mg/dL Total Bilirubin 0.8 (0.0-1.0) mg/dL AST 831 H (15-37) U/L ALT 773 H (12-78) U/L Alkaline Phosphatase 64 (46-116) U/L Creatine Kinase Index CK-MB (CK-2) Troponin I (0.000-0.060) ng/mL B-Natriuretic Peptide (0-125) pg/mL Total Protein 5.0 L (6.4-8.2) g/dL Albumin 2.6 L (3.4-5.0) g/dL Globulin 2.4 (2.2-4.2) g/dL Albumin/Globulin Ratio 1.1 (0.8-2.0) Urine Color Yellow Urine Appearance Clear (CLEAR) Urine pH 5.5 (5.0-8.0) Ur Specific [place] 1.020 (1.003-1.030) Urine Protein Negative (NEGATIVE) mg/dL Urine Glucose (UA) Negative (NEGATIVE) mg/dL Urine Ketones Negative (NEGATIVE) mg/dL Urine Occult Blood Negative (NEGATIVE) Urine Nitrite Negative (NEGATIVE) Urine Bilirubin Negative (NEGATIVE) Urine Urobilinogen 0.2 (0.2-1.0) E.U./dL Ur Leukocyte Esterase Negative (NEGATIVE) SARS CoV-2 RNA Rapid LAUREN Negative Meds: Medications Discontinued Medications Generic Name Dose Route Start Last Admin Trade Name Freq PRN Reason Stop Dose Admin Albuterol Confirm 04/04/20 08:50 Proventil Neb Soln Administered 04/04/20 08:51 Dose 0.63 mg .ROUTE .STK-MED ONE Fentanyl Confirm 04/04/20 09:56 Sublimaze Administered 04/04/20 09:57 Dose 100 mcg .ROUTE .STK-MED ONE Departure - Departure Time of Disposition: 11:30 Disposition: DC/Tfer to Acute Hospital 02 Preliminary Cause of *Q: Respiratory Failure Condition: Critical Clinical Impression: Hypotensive episode, Bradycardia with 31-40 beats per minute, Respiratory distress, acute, Acute hyperkalemia, Renal failure (ARF), acute on chronic, Elevated brain natriuretic peptide (BNP) level - Discharge Information Instructions: Bradycardia, Adult, Dialysis, Hyperkalemia, Acute Kidney Injury, Adult Referrals: PCP,None [Primary Care Provider] - Forms: ED Department Discharge Additional Instructions: Ms. Watt was transferred out to [facility] via [id number] [facility] once intubated and hemodynamically stable. Patient transferred to [employer] and received pacemaker immediately upon arrival. Sepsis Event Note (ED) - Evaluation Sepsis Screening Result: No Definite Risk - Focused Exam Vital Signs: Vital Signs Temp Temp Pulse Resp BP Pulse Ox 04/04/20 10:59 18 95/59 L 88 L 04/04/20 10:43 66/32 L 04/04/20 10:37 66/32 L 04/04/20 10:34 59 L 19 61/34 L 93 L 04/04/20 10:12 44 L 14 97 04/04/20 09:53 43/25 L 04/04/20 09:40 48 L 14 93/65 04/04/20 09:25 46 L 12 60/43 L 04/04/20 09:19 49 L 12 04/04/20 09:16 40 L 10 L 85/58 L 04/04/20 09:06 42 L 17 68/47 L 04/04/20 08:26 55 L 14 73/43 L 04/04/20 08:21 50 L 18 127/52 L 97 04/04/20 08:05 64 17 183/109 H 100 04/04/20 07:59 64 171/90 H 04/04/20 07:05 35.3 C L 35 C L 28 L 12 73/43 L - My Orders Last 24 Hours: My Active Orders 04/04/20 11:41 Chest 1V Frontal [CR] Stat - Assessment/Plan Last 24 Hours: My Active Orders 04/04/20 11:41 Chest 1V Frontal [CR] Stat
--- NOTE | 2020-04-06 14:11 | CR ---
DATE OF SERVICE: 04/04/20 CLINICAL DATA: tube placement AP CHEST: Comparison is made to a prior exam dated 03/24/20. The patient has been intubated. The tip of the endotracheal tube is 3 cm above the magan. The heart size is mildly enlarged. It does appear more prominent than on the prior exam. There is calcification of the aortic arch. The pulmonary vasculature is more prominent than on the prior exam with some cephalization of flow suggesting pulmonary venous congestion or fluid overload. There are mild interstitial changes in both lower lungs. The lungs are otherwise clear. No pneumothorax. No pleural effusions. [id number] [facility]
== END 2020-04-04 11:30 ==
LOC: LB.ED 06:54
DX: N17.9 Acute kidney failure, unspecified (principal); I95.9 Hypotension, unspecified; E87.5 Hyperkalemia; R79.89 Other specified abnormal findings of blood chemistry; R06.03 Acute respiratory distress; I48.91 Unspecified atrial fibrillation; E11.22 Type 2 diabetes mellitus with diabetic chronic kidney disease; N18.9 Chronic kidney disease, unspecified; Z20.822 Contact with and (suspected) exposure to COVID-19; Z88.2 Allergy status to sulfonamides; Z79.84 Long term (current) use of oral hypoglycemic drugs; Z79.01 Long term (current) use of anticoagulants; Z79.899 Other long term (current) drug therapy
CPT/HCPCS: 36415; 36600; 71045; 80053; 81003; 82803; 83880; 84484; 85027; 85610; 93005; 99285-25; A0425; A0429; U0002